=== PATIENT | male | born 1980 | race Caucasian/White ===

== ENCOUNTER 2024-11-02 08:20 | Emergency (ER) | payer MEDICARE, MEDICAID ==
[~2024-11-02] VITALS: Ht 182.9 cm; Wt 106.8 kg
[2024-11-02 08:21] VITALS: TEMP 97
--- NOTE | 2024-11-02 08:52 | Physician Documentation ---
History of Present Illness ~ Chief Complaint: Arm Pain Stated Complaint: R ARM PAIN Time Seen by MD: 08:37 Primary Medical Doctor: Deon Malcolm Source: patient Mode of Arrival: POV Exam Limitations: no limitations Tetanus within 5 years: No Medication Reconciliation Allergies: Uncoded Allergies: AMOXICILLAN (Allergy, Unknown, 11/02/24) Review of Systems ROS ROS negative unless otherwise stated in HPI. Physical Exam Vital Signs: Temperature: 97.0, Source: Temporal, Heart Rate: 84, Respiratory Rate: 16, BP: 180/127, Pulse Oximetry: 99, Weight: 106.820 Physical Exam VITALS: Reviewed and as above. GENERAL: Alert, no apparent distress. HEENT: Normocephalic, atraumatic, PERRL, EOMI, dry mucosa, no erythema RESPIRATORY: Lungs clear, normal breath sounds, no respiratory distress. CHEST: No accessory muscle use, no retractions CV: Regular rate, rhythm, no edema, no murmur, No: JVD GI: Soft, tenderness to the lower abdomen with palpation., bowels sounds present, no rebound, guarding, or rigidity BACK: No CVA tenderness, or swelling MUSCULOSKELETAL No obvious gross deformity noted. 2+ pulses. Cap refill < 2 seconds. Sensory intact. + TTP to proximal right arm and right elbow. SKIN: Warm and dry, no rash NEURO: Oriented x4, No motor or sensory deficit PSYCH: Normal mood and affect, no agitation Progress Results/Orders Results/Orders Orders - CODIE NEWTON MD Wrist, Complete (3vw Min) (11/02/24 08:27) Forearm,Incl.One Joint (11/02/24 08:27) Elbow, Complete (3vw Min) (11/02/24 08:27) Humerus (2vws) (11/02/24 08:54) Shoulder, Complete (Min 2 Vws) (11/02/24 08:54) Completed Orders - CODIE NEWTON MD Wrist, Complete (3vw Min) (11/02/24 08:27) Forearm,Incl.One Joint (11/02/24 08:27) Elbow, Complete (3vw Min) (11/02/24 08:27) Hydromorphone 1 Mg/Ml/Pf (Dilaudid Inj.) (11/02/24 08:55) Humerus (2vws) (11/02/24 08:54) Shoulder, Complete (Min 2 Vws) (11/02/24 08:54) Medications Received in ER Medications (Trade) Dose Ordered Sig/Lexi Route PRN Reason Start Time Stop Time Status Last Admin Dose Admin (Dilaudid inj.) 1 mg ONCE ONCE IM 11/02/24 08:55 11/02/24 08:56 DC 11/02/24 09:06 1 MG Vital Signs 11/02/24 11/02/24 08:21 09:09 Temp 97.0 Pulse 84 78 Resp 16 18 B/P (MAP) 180/127 169/118 (135) Pulse Ox 99 98 O2 Flow Rate 0 EKG/XRAY/CT/US/VASC/MRI Bone/Soft Tissue X-Ray (Spine) : Interpreted By: self Views: 2 VIEW Indication: trauma Location: other Additional Comment R elbow x-ray (as interpreted by me): small effusion to the right elbow. ? radial head fx. Medical Decision Making General Diff Dx:Considerations: Include: Abrasion, Contusion, Fracture, Hematoma, Neurovascular injury Additional Comment While here in the ED, he remained hemodynamically normal with ABC's intact and in NAD. He is afebrile and nontoxic. Sensorimotor intact to RUE. 2+ radial pulse. Cap refill < 2 seconds. I have low clinical suspicion for an acute vascular injury. I reviewed his imaging and it shows a nondisplaced fracture to the right radial head. He states that he did hit his head during the fall but denies a PHELAN, acute visual changes, no meningismus and he denies taking antiplatelet/anticoagulants. C-spine cleared with NEXUS. Discussed with Ortho and plan is to place him into a sling and have him follow-up as outpatient. Neurovascularly intact before and after splint placement. Will d/c home with script for pain meds and instructions for Ortho follow-up. Given follow-up and return instructions. He voiced understanding and agreement with d/c instructions. Departure Disposition: 01 HOME / SELF CARE / HOMELESS Impression: Primary Impression: Fracture of radius Condition: Improved Discharge Instructions: Extremity Fracture Referrals: NO PRIMARY CARE PROVIDER (PCP) BOBBY BOUDREAUX Jr., MD Prescriptions Hydrocodone Bit/Acetaminophen 5/325 MG ([place] 5/325 MG) 5 Mg/325 Mg Tablet 1 TAB PO Q6H PRN for pain for 7 Days, #12 TAB Prov: CODIE NEWTON MD 11/02/24 Naproxen (Naproxen) 500 Mg Tablet 1 TAB PO Q12H PRN for pain for 10 Days, #20 TAB Prov: CODIE NEWTON MD 11/02/24 Comments Take medications as prescribed. Do not drive or operate machinery while taking narcotic pain medication. Follow-up with your PCP and Orthopedics as instructed and return to the Emergency Department if there are any additional cocnerns. Education Educated: Patient, Family Educated regarding: diagnosis, treatment Signature Scribe Signature: N/A Attestation: N/A CODIE NEWTON MD Nov 02, 2024 08:52
--- NOTE | 2024-11-02 09:00 | RADIOLOGY REPORT ---
CLINICAL INDICATION: RIGHT ARM PAIN TECHNIQUE: 2 radiographic views of the right forearm were obtained. Comparison: DI HUMERUS (2VWS) on DOS: 11/02/24, DI ELBOW, COMPLETE (3VW MIN) on DOS: 11/02/24, DI WRIST, COMPLETE (3VW MIN) on DOS: 11/02/24 FINDINGS/IMPRESSION: There is no evidence of acute fracture or dislocation. The visualized joint space is well maintained. The alignment is anatomical. There is no radiopaque foreign body.
--- NOTE | 2024-11-02 09:00 | RADIOLOGY REPORT ---
CLINICAL INDICATION: RIGHT ELBOW PAIN TECHNIQUE: 4 radiographic views of the right elbow were obtained. Comparison: DI HUMERUS (2VWS) on DOS: 11/02/24, DI SHOULDER, COMPLETE (MIN 2 VWS) on DOS: 11/02/24, DI FOREARM,INCL.ONE JOINT on DOS: 11/02/24 FINDINGS/IMPRESSION: Small elbow joint effusion. Nondisplaced radial head fracture.
--- NOTE | 2024-11-02 09:01 | RADIOLOGY REPORT ---
CLINICAL INDICATION: RIGHT WRIST PAIN TECHNIQUE: 3 radiographic views of the right wrist were obtained. Comparison: DI ELBOW, COMPLETE (3VW MIN) on DOS: 11/02/24 FINDINGS/IMPRESSION: There is no evidence of acute fracture or dislocation. The visualized joint space is well maintained. The alignment is anatomical. There is no radiopaque foreign body.
--- NOTE | 2024-11-02 09:50 | RADIOLOGY REPORT ---
DI HUMERUS (2VWS) INDICATION: RIGHT HUMERUS Trauma TECHNICAL DATA: Frontal and lateral views were obtained of the right humerus. COMPARISON: DI SHOULDER, COMPLETE (MIN 2 VWS) on DOS: 11/02/24, DI ELBOW, COMPLETE (3VW MIN) on DOS: 11/02/24, DI FOREARM,INCL.ONE JOINT on DOS: 11/02/24 FINDINGS: There is no osseous abnormality. Soft tissues are normal. IMPRESSION: No acute fracture or dislocation.
--- NOTE | 2024-11-02 09:50 | RADIOLOGY REPORT ---
DI SHOULDER, COMPLETE (MIN 2 VWS) INDICATION: Trauma TECHNICAL DATA: 3 views were obtained of the right shoulder. COMPARISON: DI HUMERUS (2VWS) on DOS: 11/02/24 FINDINGS: There is no fracture or focal bone abnormality. The glenohumeral joint is normally maintained. The acromioclavicular joint appears normal. The humeral head is not high riding. Adjacent soft tissues are within normal limits. IMPRESSION: No acute fracture or dislocation of the right shoulder.
[2024-11-02] MEDS ORDERED: NAPR-56 PO (09:56)
[2024-11-02] MEDS ORDERED: HYDR-3965 PO (09:56)
[2024-11-02 10:00] VITALS: BP 169/119; PULSE 82; RESP 16; O2SAT 98
== END 2024-11-02 10:13 | disposition home or self-care (01) ==
LOC: ER 08:21
DX: S52.121A Displaced fracture of head of right radius, initial encounter for closed fracture (principal); X58.XXXA Exposure to other specified factors, initial encounter; Y93.89 Activity, other specified; Y92.89 Other specified places as the place of occurrence of the external cause; Y99.8 Other external cause status
CPT/HCPCS: 73030; 73060; 73080; 73090; 73110; 96372; 99284; A4565; J1171